=== PATIENT | female | born 1995 | race African-American/Black ===

== ENCOUNTER 2016-11-10 11:55 | Emergency (ER) | payer OTHER ==
[~2016-11-10] VITALS: Ht 157.5 cm; Wt 88.7 kg
[~2016-11-10 11:55] MED LIST: NORCO 5/3251 TABLET PO
[2016-11-10 12:32] LABS: EOSINOPHIL (%) 3.1 % (0-5); EOSINOPHIL COUNT 0.2 K/uL (0-0.3); HEMATOCRIT 37.1 % (36.0-46.0); IMMATURE GRANULOCYTE (%) 0.1 % (0.0-0.7); IMMATURE GRANULOCYTE COUNT 0.1 K/uL; LYMPHOCYTE COUNT 2.9 K/uL (1.0-2.8); MCH 26.3 PG (29.0-34.0); MCHC 33.2 G/DL (30.0-36.0); MCV 79.4 FL (83-99); MEAN PLAT.VOLUME 9.5 uM^3 (9.5-12.4); MONOCYTE (%) 7.7 % (3-12); MONOCYTE COUNT 0.5 K/uL (0-0.8); NEUTROPHIL (%) 46.1 % (45-76); NEUTROPHIL COUNT 3.1 K/uL (1.8-6.4); PLATELET COUNT 373 K/uL (156-360); RBC DIS.WIDTH-CV 15.5 % (11.8-14.6); RED BLOOD COUNT 4.67 M/uL (3.80-5.20); WHITE BLOOD COUNT 6.8 K/uL (4.1-10.2)
[2016-11-10 12:39] LABS: CHLORIDE 108 mEq/L (99-109); POTASSIUM 4.1 mEq/L (3.7-5.4); SODIUM 138 mEq/L (136-147)
[2016-11-10 12:41] LABS: GLUCOSE 90 mg/dL (70-99)
[2016-11-10 12:42] LABS: ANION GAP 10 MEQ/L (2-14)
[2016-11-10 12:45] LABS: GFR ESTIMATE (CALCULATED) > 59 mL/min/; UREA NITROGEN (BUN) 9 mg/dL (9-23)
[2016-11-10] MEDS ORDERED: NAPROXEN500 MG PO (14:03)
[2016-11-10 14:13] VITALS: BP 135/69
== END 2016-11-10 14:15 | disposition home or self-care (01) ==
LOC: EME 11:55
PROVIDERS: Physician Assistant
DX: H60.8X1 Other otitis externa, right ear (principal)
CPT/HCPCS: 70470; 80048; 85025; 99281; 99284; J1885; J7120